=== PATIENT | male | born 1965 | race Caucasian/White ===

== ENCOUNTER 2016-07-12 18:03 | Emergency (ER) | payer OTHER ==
--- NOTE | 2016-07-12 18:15 | CPEKG ---
Heart Rate: 58 RR Interval: 1034 P-R Interval: 184 QRSD Interval: 86 QT Interval: 408 QTC Interval: 401 P [place]: 32 QRS [place]: 90 T Wave [place]: 39 EKG Severity - BORDERLINE ECG - EKG Impression: SINUS RHYTHM EKG Impression: CONSIDER RIGHT VENTRICULAR HYPERTROPHY Electronically Signed By: Akash Lopez 12-Jul-2016 22:33:22
[2016-07-12 18:28] LABS: % IMMATURE GRANULYOCYTES 0.6 % (0.0-1.1); ABSOLUTE IMMATURE GRANULOCYTES 0.07 10^3/uL (0.00-0.10); ADD DIFF? NO; ADD MORPH? NO; ADD SCAN? NO; ATYPICAL LYMPHOCYTE FLAG 0 (0-99); FRAGMENT RBC FLAG 0 (0-99); HEMATOCRIT 47.6 % (40.0-51.0); HEMOGLOBIN 16.7 g/dL (13.7-17.5); LEFT SHIFT FLG 0 (0-99); LIPEMIA HEMOLYSIS FLAG 90 (0-99); MEAN CELL HEMOGLOBIN 33.4 pg (27.9-34.1); MEAN CELL HEMOGLOBIN CONCENTR. 35.1 g/dL (32.4-36.7); MEAN CELL VOLUME 95.2 fL (81.5-99.8); MEAN PLATELET VOLUME 10.4 fL (8.7-11.7); PLATELET CLUMPS FLAG 0 (0-99); PLATELET COUNT 212 10^3/uL (150-400); RED CELL DISTRIBUTION WIDTH 12.3 % (11.5-15.2)
[2016-07-12 18:31] VITALS: TEMP 98.4
[2016-07-12 18:35] LABS: ANION GAP 15 mEq/L (8-16); CALCIUM 9.4 mg/dL (8.5-10.4); CARBON DIOXIDE 25 mEq/l (22-31); CHLORIDE 101 mEq/L (97-110); GLOMERULAR FILTRATION RATE > 60; GLUCOSE 93 mg/dL (70-100); POTASSIUM 4.2 mEq/L (3.5-5.2); SODIUM 141 mEq/L (134-144)
[2016-07-12 18:47] LABS: TROPONIN I < 0.012 ng/mL (0-0.034)
--- NOTE | 2016-07-12 19:14 | UCPHY ---
H & P Patient Type: New Chief Complaint Nursing Narrative: pt states left sided cp starting approx at 7am today when pt woke up that has been constant throughout the day. pt states pain radiates to between shoulder blades. pain is worse upon inspiration, when speaking, and upon exertion. pt was adopted and has no prior record of fam cardiac history. Time Seen by Provider: 07/12/16 18:11 HPI/ROS: This patient noted chest pain shortly after waking this morning in left anterior chest after around the level of the 6-7th rib as he points to an isolated area just below the nipple on the left side. He states the intensity is about 4/10. It is minimal at baseline becomes slightly sharp feeling with a deep breath. No other exacerbating factors. He has never had this pain before. He has no other associated except perhaps mild dyspnea. ROS: No recent trauma although he did do yoga last night. He typically does this once or twice a week. He does remember any injuries. No fevers chills or fatigue. HEENT: No coryza. No sore throat. Pulmonary: No cough. Cardiovascular: No leg swelling or calf pain. No heart palpitations or lightheadedness. No diaphoresis. GI: No vomiting diarrhea endocrine: No symptoms integumentary: No skin rash. 10 point ROS is otherwise negative Source: Patient Exam Limitations: No limitations - Personal History Current Tetanus/Diphtheria Vaccine: Yes Current Tetanus Diphtheria and Acellular Pertussis (TDAP): Yes - Medical/Surgical History Hx Asthma: No Hx Chronic Respiratory Disease: No Hx Diabetes: No Hx Cardiac Disease: No Hx Renal Disease: No Hx Cirrhosis: No Hx Alcoholism: No Hx HIV/AIDS: No Hx Splenectomy or Spleen Trauma: No Other PMH: pt denies prior medical history at this time - Family History Significant Family History: No pertinent family hx, Other (The patient was adopted so is unfamiliar with family history) - Social History Smoking Status: Never smoked Alcohol Use: Other (He has 1-2 beers 4 to 5 times a week) Drug Use: None - Physical Exam Exam: General Appearance: Alert, no distress. Eyes: Pupils equal and round no pallor or injection. ENT, Mouth: Mucous membranes moist. Respiratory: There are no retractions, lungs are clear to auscultation. There is no chest wall tenderness. No abnormalities to the skin at the affected area. Cardiovascular: Regular rate and rhythm. No murmur gallop rub. No JVD. No leg swelling or calf tenderness. Gastrointestinal: Abdomen is soft and nontender, no masses, bowel sounds normal. Neurological: GCS 15 with no focal sensory motor deficits. Skin: Warm and dry, no rashes. Musculoskeletal: Neck is supple nontender. Extremities are symmetrical, full range of motion. Psychiatric: Mood and affect are normal. DIFFERENTIAL DIAGNOSIS: After history and physical exam differential diagnosis was considered for pleurisy, PE, pneumonia, pneumothorax, musculoskeletal pain, coronary syndrome Constitutional: Initial Vital Signs Temperature (C) 36.9 C 07/12/16 18:24 Heart Rate 65 07/12/16 18:24 Respiratory Rate 20 07/12/16 18:24 Blood Pressure 148/87 H 07/12/16 18:24 O2 Sat (%) 95 07/12/16 18:24 O2 Delivery Mode Room Air Allergies/Adverse Reactions: No Known Allergies Allergy (Unverified 07/12/16 18:23) Home Medications: Medication Instructions Recorded NK [No Known Home Meds] 07/12/16 Medical Decision Making - Diagnostics EKG Interpretation: 12 lead EKG performed shortly after arrival reveals sinus rhythm without evidence of ischemia or other significant abnormalities. Overall assessment normal EKG with possible RVH. for complete read please refer to trace master ED Course/Re-evaluation: Patient took aspirin 650 mg prior to arrival. He declined analgesics while here. He remained stable without further complaints. Review of his labs reveals a normal D-dimer and troponin, normal CBC the exception of mild leukocytosis and increased neutrophils. Electrolytes normal. On review the chest x-ray appears to be mild basilar atelectasis. I do not think this represents pneumonia given lack of cough, lack of rales or fever. I suspect that is mild leukocytosis is stress demargination I counseled him regarding this. Given no risk factors for DVT combined with negative D-dimer with affected rule out PE. No pneumonia, pneumothorax or other concerning findings. Given lack of reproducible chest wall tenderness I think that patient has pleurisy and I counseled him regarding this. - Data Points Laboratory Results: Laboratory Results 07/12/16 18:20 07/12/16 18:20 07/12/16 07/12/16 07/12/16 18:20 18:20 18:20 WBC 11.67 10^3/uL H 10^3/uL (3.80-9.50) RBC 5.00 10^6/uL 10^6/uL (4.40-6.38) Hgb 16.7 g/dL g/dL (13.7-17.5) Hct 47.6 % % (40.0-51.0) MCV 95.2 fL fL (81.5-99.8) MCH 33.4 pg pg (27.9-34.1) MCHC 35.1 g/dL g/dL (32.4-36.7) RDW 12.3 % % (11.5-15.2) Plt Count 212 10^3/uL 10^3/uL (150-400) MPV 10.4 fL fL (8.7-11.7) Neut % (Auto) 75.8 % H % (39.3-74.2) Lymph % (Auto) 14.4 % L % (15.0-45.0) Power % (Auto) 7.8 % % (4.5-13.0) Eos % (Auto) 1.0 % % (0.6-7.6) Baso % (Auto) 0.4 % % (0.3-1.7) Nucleat RBC Rel Count 0.0 % % (0.0-0.2) Absolute Neuts (auto) 8.84 10^3/uL H 10^3/uL (1.70-6.50) Absolute Lymphs (auto) 1.68 10^3/uL 10^3/uL (1.00-3.00) Absolute Monos (auto) 0.91 10^3/uL H 10^3/uL (0.30-0.80) Absolute Eos (auto) 0.12 10^3/uL 10^3/uL (0.03-0.40) Absolute Basos (auto) 0.05 10^3/uL 10^3/uL (0.02-0.10) Absolute Nucleated RBC 0.00 10^3/uL 10^3/uL (0-0.01) Immature Gran % 0.6 % % (0.0-1.1) Immature Gran # 0.07 10^3/uL 10^3/uL (0.00-0.10) D-Dimer < 0.27 ug/mLFEU ug/mLFEU (0.00-0.50) Sodium 141 mEq/L mEq/L (134-144) Potassium 4.2 mEq/L mEq/L (3.5-5.2) Chloride 101 mEq/L mEq/L (97-110) Carbon Dioxide 25 mEq/l mEq/l (22-31) Anion Gap 15 mEq/L mEq/L (8-16) BUN 22 mg/dL mg/dL (7-23) Creatinine 1.0 mg/dL mg/dL (0.7-1.3) Estimated GFR > 60 Glucose 93 mg/dL mg/dL (70-100) Calcium 9.4 mg/dL mg/dL (8.5-10.4) Troponin I < 0.012 ng/mL ng/mL (0-0.034) Departure - Departure Disposition: Home, Routine, Self-Care Clinical Impression: Pleurisy Condition: Good Instructions: Pleurisy (ED) Additional Instructions: Diagnosis: Pleurisy Plan: [id number] mg for 6 hours as needed for pain Tylenol in addition if needed Your symptoms improve sometime over the next few days to 3 weeks Return here to the emergency department for any significant worsening of her symptoms despite the treatment plan. Referrals: Alex Ventura MD [Primary Care Provider] - As per Instructions - PQRS PQRS Measurement: NA
[2016-07-12 19:35] VITALS: BP 108/78; PULSE 63; RESP 16; O2SAT 94
== END 2016-07-12 19:45 | disposition home or self-care (01) ==
LOC: CED 18:03
DX: R09.1 Pleurisy (principal)
CPT/HCPCS: 71020-PO; 80048-PO; 84484-PO; 85025-PO; 85378-PO; 93010-PO; 99205-PO; G0463-PO